=== PATIENT | male | born 1980 | race Caucasian/White ===

== ENCOUNTER 2024-01-24 11:09 | Emergency (ER) | payer SELFPAY ==
[2024-01-24 11:15] VITALS: BP 153/95; PULSE 62; RESP 18; TEMP 37.1; O2SAT 96; BMI 47.5
--- NOTE | 2024-01-24 11:27 | XR_ITS ---
The [address] [address] Patient Name: DENTON ROQUE MRN: [id number] date: 1980 Sex: M Assigned Patient Location: ER Current Patient Location: ER Accession/Order Number: [id number] Exam Date: 01/24/2024 11:40 Report Date: 01/24/2024 12:39 At the request of: SHERWIN RADFORD Procedure: XR foot LT min 3V EXAM: XR foot LT min 3V HISTORY: fall injury, pain laterally. COMPARISON: Left ankle x-ray 01/23/2014. Left foot 06/27/2015. TECHNIQUE: AP, oblique, lateral x-ray left foot. FINDINGS: No displaced fracture seen. Normal joints and soft tissues toes and mid foot. Anterior spurs noted plantar and posterior. Plantar spur new from 2014, posterior spur has increased. Accessory ossicles adjacent to the cuboid. XR/XR foot LT min 3V IMPRESSION: No definite fracture noted. Calcaneal spurs. Electronically authenticated by: DIANA STORM Date: 01/24/2024 12:39
--- NOTE | 2024-01-24 11:27 | XR_ITS ---
The [address] [address] Patient Name: DENTON ROQUE MRN: [id number] date: 1980 Sex: M Assigned Patient Location: ER Current Patient Location: ED.MAIN Accession/Order Number: [id number] Exam Date: 01/24/2024 11:40 Report Date: 01/24/2024 12:37 At the request of: SHERWIN RADFORD Procedure: XR ankle LT min 3V EXAM: XR ankle LT min 3V HISTORY: fall pain laterally. COMPARISON: [40 x-ray 01/24/2024, 06/27/2015. TECHNIQUE: AP, oblique, lateral left ankle. FINDINGS: Cortical break or displaced fracture. Asymmetric lateral soft tissue swelling at the ankle and foot. Small calcification adjacent to the tip of the lateral malleolus is nonspecific, small avulsion not excluded but no definite cortical irregularity seen. Could be old.. Osseous density adjacent to this is smooth margins and appears old. Calcaneal spurs noted, plantar new from 2014, posterior spur increased. XR/XR ankle LT min 3V IMPRESSION: Lateral soft tissue swelling. No displaced fracture seen. Tiny calcific density adjacent to the tip of the lateral malleolus could be a small avulsion, although no definite cortical irregularity of the adjacent fibula.. Could be old. Electronically authenticated by: DIANA STORM Date: 01/24/2024 12:37
--- NOTE | 2024-01-24 12:26 | ED_ITS ---
HPI - Extremity Injury (Lower) General Chief Complaint: Extremity Injury, Lower Stated Complaint: LT ANKLE INJURY Time Seen by Provider: 01/24/24 11:25 Source: patient Mode of arrival: walk-in Limitations: no limitations History of Present Illness HPI Narrative: The patient mentioned that he came to the ER with a left ankle pain that started after he fell down going downstairs he was mostly at the end of the steps almost 1 feet off the ground when he had fell down to the left side and his left ankle started hurting. He denies any head injury or loss of consciousness He still was able to walk on his left ankle with a limp Related Data Previous Rx's ?Medication ?Instructions ?Recorded naproxen 250 mg tablet 250 mg PO Q12H PRN pain #20 tabs 01/24/24 Allergies Allergy/AdvReac Type Severity Reaction Status Date / Time No Known Drug Allergies Allergy Verified 01/24/24 11:18 Review of Systems ROS Status of ROS 10 or more systems reviewed and unremark able except as noted in history and below Exam Narrative Exam Narrative: Nurses notes and vital signs reviewed and patient is not hypoxic. General: Well-appearing and in no apparent distress. Skin: Warm, dry, no pallor noted. No rash. Head: Normocephalic, atraumatic. Neck: Supple, non-tender. Eye: Pupils are equal, round and EOMI. No scleral icterus. Ears, Nose, Mouth, and Throat: TM are clear, no nasal mucosal hypertrophy. Oral mucosa is moist, no posterior oropharynx erythema, uvula is mid-line Cardiovascular: Regular Rate and Rhythm without murmur, gallop or rub. Respiratory: No accessory muscle use or respiratory distress. Lungs are clear to auscultation, no wheezing, rales or rhonchi Chest Wall: no tenderness Back: No midline thoracic or lumbar vertebral tenderness. No CVA tenderness Musculoskeletal: normal ROM, no calf or popliteal tenderness, the patient have a edema the left side of the ankle mostly around the lateral malleolus and there is no open wounds and no ecchymosis but the patient have significant edema and tenderness at that level, no vascular injury no tenderness detected in the rest of the leg GI: Abdomen is soft, non-distended. Normal bowel sounds. No masses appreciated. No tenderness to palpation. No rebound, guarding, or rigidity noted. Neurological: A&O x4. No cranial nerve dysfunction observed. No truncal ataxia. Moves all extremities. Sensation intact. Psychiatric: Cooperative and interactive. Normal mood and affect. Constitutional Vital Signs, click to edit/add: Last Vital Signs Temp 98.8 F 01/24/24 11:15 Pulse 62 01/24/24 11:15 Resp 18 01/24/24 11:15 BP 153/95 H 01/24/24 11:15 Pulse Ox 96 01/24/24 11:15 O2 Del Method Room Air 01/24/24 11:15 Course Vital Signs Vital signs: Vital Signs Temperature 98.8 F 01/24/24 11:15 Pulse Rate 62 01/24/24 11:15 Respiratory Rate 18 01/24/24 11:15 Blood Pressure 153/95 H 01/24/24 11:15 Pulse Oximetry 96 01/24/24 11:15 Oxygen Delivery Method Room Air 01/24/24 11:15 Temperature 98.8 F 01/24/24 11:15 Pulse Rate 62 01/24/24 11:15 Respiratory Rate 18 01/24/24 11:15 Blood Pressure 153/95 H 01/24/24 11:15 Pulse Oximetry 96 01/24/24 11:15 Oxygen Delivery Method Room Air 01/24/24 11:15 MDM - Extremity Injury (Lower) MDM Narrative Medical decision making narrative: X-ray of the patient left foot and ankle shows possibly an avulsion fracture Right now the patient will be placed in the left to posterior short splint in addition to crutches Naproxen for pain and elevation and rest with referral to podiatry as outpatient The patient is to follow up with primary care physician in next 2-3 days or to return to the emergency department should any of the signs or symptoms worsen or new symptoms develop. The patient agrees with the following Diagnosis and Treatment plan and the patient will be discharged home. Discharge Plan Discharge Stand Alone Forms: Portal Instructions Chief Complaint: Extremity Injury, Lower Clinical Impression: Ankle fracture, left Qualifiers: Encounter type: initial encounter Fracture type: closed Qualified Code(s): S82.892A - Other fracture of left lower leg, initial encounter for closed fracture Patient Disposition: Home, Self-Care Time of Disposition Decision: 13:25 Condition: Good Prescriptions / Home Meds: New naproxen 250 mg tablet 250 mg PO Q12H PRN (Reason: pain) Qty: 20 0RF Print Language: Guyanese Instructions: Leg Fracture (ED) Referrals: Physician,Non-Staff, [Primary Care Provider] - 1 week Kennedy Tolbert DPM [Physician] - 1 week
== END 2024-01-24 13:38 | disposition home or self-care (01) ==
PROVIDERS: Emergency Provider Emergency Medicine
DX: S82.892A Other fracture of left lower leg, initial encounter for closed fracture (principal); W10.9XXA Fall (on) (from) unspecified stairs and steps, initial encounter
CPT/HCPCS: 29515; 73610; 73630; 99283